=== PATIENT | male | born 1950 | race Caucasian/White ===

== ENCOUNTER 2019-04-17 08:06 | Day surgery (SDC) | payer OTHER ==
[2019-04-16 14:09] VITALS: BMI 27.5
[2019-04-17] MEDS ORDERED: LIDOCAINE HCL/PF 2% SDV 5ML VIAL ONE (08:45)
[2019-04-17] MEDS ORDERED: PROPOFOL 20 ML ONE ×2 (08:45)
[2019-04-17 09:36] VITALS: TEMP 97.9
[2019-04-17 10:18] VITALS: BP 126/73; PULSE 71
--- NOTE | 2019-04-19 16:11 | PATH ---
Surgical Pathology Report Patient Name: LEDA POON [facility]. Rec. #: [id number] /Age/Gender: 1950 (Age: 68) / M Account: [id number] Location: [facility] Taken: 04/17/2019 Received: 04/17/2019 Reported: 04/19/2019 Physicians: Michael Londono M.D. Specimen(s) Received POLYP RIGHT COLON Clinical History History of polyps Postoperative diagnosis: Colon polyp Final Diagnosis RIGHT COLON POLYP, POLYPECTOMY: TUBULAR ADENOMA. Electronically Signed Ida Charles M.D. Gross Description Received in formalin, labeled "biopsy polyp right colon" is a manley, irregular portion of soft tissue measuring 0.3 cm. in greatest dimension. The specimen is submitted in toto in one cassette. 04/18/2019 [facility]04/18/2019
== END 2019-04-17 10:18 | disposition home or self-care (01) ==
LOC: FASU-ENDO 08:06
PROVIDERS: ATTEND Internal Medicine Gastroenterology
PROC: 0DBK8ZX Excision of Ascending Colon, Via Natural or Artificial Opening Endoscopic, Diagnostic (ICD-10-PCS; principal; 2019-04-17 09:09)
DX: Z86.010 Personal history of colon polyps (principal); D12.2 Benign neoplasm of ascending colon
CPT/HCPCS: 88305-TC